=== PATIENT | female | born 1950 ===

== ENCOUNTER → 2022-07-02 | Outpatient (RCR) | payer MEDICARE | LOC: PT 06-25 13:52 | PROVIDERS: ATTEND Family Medicine | DX: M51.36 Other intervertebral disc degeneration, lumbar region (principal) ==

== ENCOUNTER 2022-07-18 14:00 | Outpatient (RCR) | payer MEDICARE | END 2022-08-01 | LOC: PT 14:00 | PROVIDERS: ATTEND Family Medicine | DX: M51.36 Other intervertebral disc degeneration, lumbar region (principal) ==